=== PATIENT | female | born 1940 | race Caucasian/White ===

== ENCOUNTER → 2020-07-03 | Outpatient (CLI) | payer MEDICARE ==
[2020-08-16 13:37] LABS: ABG HCO3 26.8 MEQ/L (22.0-26.0); ABG PARTIAL PRESSURE CO2 42.3 mmHg (35.0-45.0); ABG PARTIAL PRESSURE O2 72.5 mmHg (75.0-100.0); ABG TOTAL CO2 28.1 MEQ/L (23.0-31.0); ABG pH (ARTERIAL) 7.419 UNITS (7.350-7.450)
[2020-08-16 13:38] LABS: ABG O2 SATURATION 94.8 % (95.0-99.0); ABG STANDARD HCO3 26.2 MEQ/L (22.0-26.0)
== END ==
LOC: M LAB 15:22
PROVIDERS: ATTEND Internal Medicine Pulmonary Disease
DX: J44.9 Chronic obstructive pulmonary disease, unspecified (principal)

== ENCOUNTER → 2020-10-31 | Outpatient (REF) | payer MEDICARE ==
[2020-10-31 18:16] LABS: PERCENT SATURATION 33.2 % (13.2-45.0)
== END ==
LOC: M LAB REF 16:53
PROVIDERS: ATTEND Internal Medicine Nephrology
DX: D50.9 Iron deficiency anemia, unspecified (principal); R80.9 Proteinuria, unspecified

== ENCOUNTER → 2021-03-27 | Outpatient (REF) | payer MEDICARE ==
[2021-03-27 18:18] LABS: TOTAL PROTEIN 7.2 GM/DL (6.4-8.2)
== END ==
LOC: M LAB REF 17:10
PROVIDERS: ATTEND Internal Medicine Nephrology
DX: R80.9 Proteinuria, unspecified (principal)